=== PATIENT | female | born 1945 | race Caucasian/White ===

== ENCOUNTER 2019-09-29 11:09 | Emergency (ER) | payer OTHER ==
[~2019-09-29 11:09] MED LIST: AMIO200T44 PO; ASPI-1197 PO; ASPI-555 PO; CARV3.1262 PO; GABA-531 PO; IPRA3AMP24 IH; ISOS60TA4 PO; LEVO75TA10 PO; LISI10TA7 PO; METF-444 PO; METF500T3 PO; NITR.3 SL; PRAV40TA3 PO; TRAM50TA4 PO; TRAZ-185 PO
== END 2019-09-29 11:48 | disposition home or self-care (01) ==
LOC: EDH 11:09
DX: M17.12 Unilateral primary osteoarthritis, left knee (principal); I10 Essential (primary) hypertension; R78.5 Finding of other psychotropic drug in blood; E11.9 Type 2 diabetes mellitus without complications; E07.9 Disorder of thyroid, unspecified
CPT/HCPCS: 99281

== ENCOUNTER → 2020-01-07 | Outpatient (CLI) | payer OTHER ==
[~2020-01-07] MED LIST changes: -ASPI-555 PO; +ASPI-556 PO
== END | disposition home or self-care (01) ==
LOC: SHCH 10:55
PROVIDERS: ATTEND Internal Medicine Cardiovascular Disease
DX: I25.110 Atherosclerotic heart disease of native coronary artery with unstable angina pectoris (principal)
CPT/HCPCS: 93306; 93356

== ENCOUNTER → 2020-01-15 | Outpatient (CLI) | payer OTHER ==
[~2020-01-15] MED LIST changes: +REGADENOSON 0.4 MG/5 ML PF SYG IVP SCH
== END | disposition home or self-care (01) ==
LOC: RAH 08:53
PROVIDERS: ATTEND Internal Medicine Cardiovascular Disease
DX: I25.110 Atherosclerotic heart disease of native coronary artery with unstable angina pectoris (principal); R07.9 Chest pain, unspecified; R06.00 Dyspnea, unspecified
CPT/HCPCS: 78452; 93017; 96374; A9500 ×2; J2785

== ENCOUNTER → 2020-11-11 | Outpatient (CLI) | payer OTHER ==
[~2020-11-11] MED LIST changes: -ISOS60TA4 PO; +ISOS60TA77 PO; +LISI10TA24 PO; -LISI10TA7 PO; -REGADENOSON 0.4 MG/5 ML PF SYG IVP SCH
== END | disposition home or self-care (01) ==
LOC: SHCH 13:14
PROVIDERS: ATTEND Internal Medicine Cardiovascular Disease
DX: I65.22 Occlusion and stenosis of left carotid artery (principal); E78.5 Hyperlipidemia, unspecified; I48.91 Unspecified atrial fibrillation; E11.42 Type 2 diabetes mellitus with diabetic polyneuropathy; I11.9 Hypertensive heart disease without heart failure; Z68.27 Body mass index [BMI] 27.0-27.9, adult; I25.810 Atherosclerosis of coronary artery bypass graft(s) without angina pectoris; Z95.1 Presence of aortocoronary bypass graft
CPT/HCPCS: 93880

== ENCOUNTER 2021-04-06 09:58 | Observation (INO) | payer OTHER ==
[~2021-04-06] VITALS: Ht 154.9 cm; Wt 64.4 kg
[2021-04-06 10:52] LABS: BASOPHILS % (AUTO) 0.4 % (0.0-5.0); EOSINOPHILS % (AUTO) 2.8 % (0.0-8.0); HEMATOCRIT 36.4 % (36-48); LYMPHOCYTES % (AUTO) 18.9 % (21.0-51.0); MEAN CORPUSCULAR HEMOGLOBIN 27.8 pg (27.0-33.0); MEAN CORPUSCULAR VOLUME 84.5 fL (79-99); MONOCYTES % (AUTO) 8.4 % (3.0-13.0); PLATELET COUNT (AUTO) 212 K/uL (130-400); RED BLOOD CELL COUNT(AUTO) 4.31 MIL/uL (4.00-5.50); RED CELL DISTRIBUTION WIDTH 15.2 % (11.0-15.5); WHITE BLOOD COUNT (AUTO) 7.8 K/uL (4.8-10.8)
[2021-04-06] MEDS ORDERED: ONDANSETRON 4MG INJ IVP ONE (11:00)
[2021-04-06] MEDS ORDERED: LACTATED RINGERS 1000ML 1,000 ML IV ONE (11:00)
[2021-04-06 11:12] LABS: B-TYPE NATRIURETIC PEPTIDE 25 pg/mL (0-100)
[2021-04-06 11:13] LABS: CREATININE 1.6 mg/dL (0.5-1.5); POTASSIUM 5.7 mmol/L (3.5-5.1)
[2021-04-06 11:18] LABS: ALBUMIN 4.3 g/dL (3.5-5.0); BILIRUBIN,TOTAL 0.6 mg/dL (0.2-1.0); TOTAL PROTEIN, SERUM 7.5 g/dL (6.0-8.3)
[2021-04-06 12:42] LABS: APPEARANCE,URINE CLEAR (CLEAR); BILIRUBIN,URINE NEGATIVE (NEGATIVE); COLOR,URINE YELLOW (YELLOW); GLUCOSE, URINE (UA) NEGATIVE (NEGATIVE); KETONES,URINE 15 mg/dL (NEGATIVE); LEUKOCYTE ESTERASE ,URINE NEGATIVE (NEGATIVE); NITRATE,URINE NEGATIVE (NEGATIVE); OCCULT BLOOD,URINE NEGATIVE (NEGATIVE); PROTEIN,URINE NEGATIVE (NEGATIVE); UROBILINOGEN,URINE 0.2 mg/dL (0.2-1.0)
[2021-04-06 13:15] LABS: BACTERIA,URINE Rare /HPF (None Seen); RBC,URINE 0-1 /HPF (0-1); SQUAMOUS EPITHELIAL CELL,UR Rare /HPF (0-2); WBC,URINE 0-1 /HPF (0-1)
[2021-04-06] MEDS ORDERED: FAMOTIDINE 20MG VIAL IV ONE (13:49)
[2021-04-06 14:16] LABS: CREATININE 1.3 mg/dL (0.5-1.5); POTASSIUM 5.8 mmol/L (3.5-5.1)
[2021-04-06] MEDS ORDERED: PROMETHAZINE HCL 25 MG/ML 1ML AMPULE IM ONE (14:30)
[2021-04-06] MEDS ORDERED: ACETAMINOPHEN 325 MG TAB PO PRN (16:00)
[2021-04-06] MEDS ORDERED: ONDANSETRON 4MG INJ IVP PRN (16:00)
[2021-04-06] MEDS ORDERED: MORPHINE 2 MG SYG IVP PRN (16:00)
[2021-04-06] MEDS ORDERED: CLONIDINE HCL 0.1 MG TABLET PO PRN (16:00)
[2021-04-06] MEDS ORDERED: ACETAMINOPHEN 650 MG SUPPOSITORY RC PRN (16:00)
[2021-04-06] MEDS: CEFTRIAXONE 1G VIAL IVP SCH (16:43)
[2021-04-06] MEDS: DEXTROSE 5 % AND 0.9 % NACL 1,000 ML IV SCH (16:43)
[2021-04-06] MEDS: ALBUTEROL 0.083% 2.5 MG/3 ML INH IH SCH (18:00)
[2021-04-06 21:26] LABS: APPEARANCE,URINE Clear (CLEAR); BILIRUBIN,URINE Negative (NEGATIVE); COLOR,URINE Yellow (YELLOW); GLUCOSE, URINE (UA) 250 mg/dL (NEGATIVE); KETONES,URINE 15 mg/dL (NEGATIVE); LEUKOCYTE ESTERASE ,URINE Negative (NEGATIVE); NITRATE,URINE Negative (NEGATIVE); OCCULT BLOOD,URINE Negative (NEGATIVE); PH,URINE 5.5 (5.0-8.0); PROTEIN,URINE Negative (NEGATIVE); UROBILINOGEN,URINE 0.2 mg/dL (0.2-1.0)
[2021-04-06 21:35] LABS: BACTERIA,URINE Rare /HPF (None Seen); RBC,URINE 0-1 /HPF (0-1); SQUAMOUS EPITHELIAL CELL,UR Rare /HPF (0-2); WBC,URINE 0-1 /HPF (0-1)
[2021-04-06] MEDS ORDERED: VITA1CAP50 PO (22:11)
[2021-04-06] MEDS ORDERED: CHOL500045 PO (22:11)
[2021-04-06] MEDS ORDERED: OMEG100014 PO (22:11)
[2021-04-06] MEDS ORDERED: FLUT16H NS (22:11)
[2021-04-06] MEDS ORDERED: LEVO88CA4 PO (22:11)
[2021-04-06] MEDS ORDERED: MAGN250T2 PO (22:11)
[2021-04-06] MEDS ORDERED: RANO500T2 PO (22:11)
[2021-04-06] MEDS: METRONIDAZOLE 500MG/100ML BAG 100 ML IVPB SCH (22:28)
[2021-04-07 04:15] VITALS: BP 145/61
[2021-04-07] MEDS: METRONIDAZOLE 500MG/100ML BAG 100 ML IVPB SCH ×3 (05:55→22:59)
[2021-04-07] MEDS: ALBUTEROL 0.083% 2.5 MG/3 ML INH IH SCH ×2 (06:00→18:00)
[2021-04-07 06:18] LABS: BASOPHILS % (AUTO) 0.5 % (0.0-5.0); EOSINOPHILS % (AUTO) 4.3 % (0.0-8.0); HEMATOCRIT 35.8 % (36-48); LYMPHOCYTES % (AUTO) 23.4 % (21.0-51.0); MEAN CORPUSCULAR HEMOGLOBIN 27.9 pg (27.0-33.0); MEAN CORPUSCULAR HGB CONC 33.2 g/dL (32.0-36.0); MONOCYTES % (AUTO) 9.8 % (3.0-13.0); NEUTROPHILS % (AUTO) 61.7 % (40.0-77.0); PLATELET COUNT (AUTO) 211 K/uL (130-400); RED BLOOD CELL COUNT(AUTO) 4.26 MIL/uL (4.00-5.50); RED CELL DISTRIBUTION WIDTH 15.7 % (11.0-15.5); WHITE BLOOD COUNT (AUTO) 6.5 K/uL (4.8-10.8)
[2021-04-07 06:29] LABS: HEMOGLOBIN A1C 5.9 % (4.0-6.0)
[2021-04-07 06:49] LABS: MAGNESIUM 1.4 mg/dL (1.80-2.40); PHOSPHORUS 2.9 mg/dL (2.5-4.9); POTASSIUM 4.8 mmol/L (3.5-5.1); THYROID STIMULATING HORMONE 0.83 uIU/mL (0.36-3.74)
[2021-04-07] MEDS: DEXTROSE 5 % AND 0.9 % NACL 1,000 ML IV SCH ×2 (08:00→12:00)
[2021-04-07 08:39] VITALS: BP 129/57
[2021-04-07] MEDS: ENOXAPARIN SODIUM 40 MG/0.4 ML SYRINGE SQ SCH (08:58)
[2021-04-07] MEDS: PANTOPRAZOLE 40 MG/VIAL IVP SCH (08:58)
[2021-04-07 11:46] VITALS: BP 146/47
[2021-04-07] MEDS ORDERED: METF-444 PO (14:17)
[2021-04-07] MEDS ORDERED: PRAV40TA3 PO (14:17)
[2021-04-07] MEDS ORDERED: CARV6.25 PO (14:17)
[2021-04-07] MEDS ORDERED: LISI10TA24 PO (14:17)
[2021-04-07] MEDS ORDERED: NITR0.4T50 SL (14:17)
[2021-04-07] MEDS ORDERED: ISOS60TA77 PO (14:17)
[2021-04-07] MEDS ORDERED: AEC81 PO (14:17)
[2021-04-07] MEDS ORDERED: GABA-529 PO (14:17)
[2021-04-07] MEDS ORDERED: FLUT16H NASAL (14:39)
[2021-04-07] MEDS ORDERED: NITROGLYCERIN 0.4 MG SL TAB SL PRN (15:00)
[2021-04-07] MEDS: CEFTRIAXONE 1G VIAL IVP SCH (15:05)
[2021-04-07 16:15] VITALS: BP 161/62
[2021-04-07 19:15] VITALS: BP 134/50
[2021-04-07] MEDS ORDERED: NON-FORMULARY MEDICATION 1 EACH (Pravastatin Sodium 40 MG) PO SCH (21:00)
[2021-04-07] MEDS ORDERED: MAGNESIUM 500MG PO SCH (21:00)
[2021-04-07] MEDS ORDERED: ISOSORBIDE MONO 60MG SR TAB PO SCH (21:00)
[2021-04-07] MEDS ORDERED: PRAVASTATIN 40MG PO SCH (21:00)
[2021-04-07] MEDS ORDERED: MAGNESIUM 500 MG PO SCH (21:00)
[2021-04-07] MEDS: CARVEDILOL 6.25 MG TABLET PO SCH (21:24)
[2021-04-07] MEDS: METFORMIN HCL 500 MG TABLET PO SCH (21:25)
[2021-04-07] MEDS: RANOLAZINE 500 MG TAB.SR.12H PO SCH (21:25)
[2021-04-07] MEDS: GABAPENTIN 100 MG CAPSULE PO SCH (21:26)
[2021-04-07 23:27] VITALS: BP 138/53
[2021-04-08] VITALS (17 sets, daily range): BP systolic 100–144; BP diastolic 49–80
[2021-04-08] MEDS: ALBUTEROL 0.083% 2.5 MG/3 ML INH IH SCH ×2 (06:00→11:09)
[2021-04-08] MEDS: METRONIDAZOLE 500MG/100ML BAG 100 ML IVPB SCH ×2 (06:14→15:08)
[2021-04-08] MEDS: DEXTROSE 5 % AND 0.9 % NACL 1,000 ML IV SCH ×2 (06:15→08:00)
[2021-04-08] MEDS ORDERED: LEVOTHYROXINE 88 MCG TABLET PO SCH (06:30)
[2021-04-08] MEDS ORDERED: NON-FORMULARY MEDICATION 1 EACH (Cholecalciferol (Vitamin D3) (Vitamin D3) 125 MCG) PO SCH (09:00)
[2021-04-08] MEDS ORDERED: VITAMIN B COMPLEX 1 CAPSULE PO SCH (09:00)
[2021-04-08] MEDS ORDERED: B COMPLEX WITH VITAMIN C PO SCH (09:00)
[2021-04-08] MEDS ORDERED: ASPIRIN 81 MG EC TAB PO SCH (09:00)
[2021-04-08] MEDS: ENOXAPARIN SODIUM 40 MG/0.4 ML SYRINGE SQ SCH (09:00)
[2021-04-08] MEDS ORDERED: VITAMIN D 125MCG PO SCH (09:00)
[2021-04-08] MEDS ORDERED: OMEGA PO SCH (09:00)
[2021-04-08] MEDS: METFORMIN HCL 500 MG TABLET PO SCH (09:00)
[2021-04-08] MEDS ORDERED: ASCORBIC ACID 500 MG TAB PO SCH (09:00)
[2021-04-08] MEDS: RANOLAZINE 500 MG TAB.SR.12H PO SCH (09:00)
[2021-04-08] MEDS: CARVEDILOL 6.25 MG TABLET PO SCH (09:00)
[2021-04-08] MEDS: PANTOPRAZOLE 40 MG/VIAL IVP SCH (09:00)
[2021-04-08] MEDS ORDERED: FATTY ACIDS PO SCH (09:00)
[2021-04-08] MEDS ORDERED: FISH OIL 1000 MG/CAP PO SCH (09:00)
[2021-04-08] MEDS: GABAPENTIN 100 MG CAPSULE PO SCH ×2 (09:00→15:09)
[2021-04-08] MEDS ORDERED: NON-FORMULARY MEDICATION 1 EACH (Levothyroxine Sodium (Levothyroxine) 88 MCG) PO SCH (09:00)
[2021-04-08] MEDS ORDERED: PROPOFOL 10 MG/ML 20ML VIAL IV ONE (12:00)
[2021-04-08] MEDS ORDERED: LIDOCAINE HCL 1% 20 ML VIAL ONE (12:01)
[2021-04-08] MEDS ORDERED: EPHEDRINE SULFATE 50 MG/ML AMPULE ONE (12:07)
[2021-04-08] MEDS: CEFTRIAXONE 1G VIAL IVP SCH (15:08)
[2021-04-08] MEDS ORDERED: PANT40TA54 PO (17:22)
[2021-04-08] MEDS ORDERED: METO5TAB2 PO (17:25)
[2021-04-08] MEDS ORDERED: METR500T PO (17:26)
== END 2021-04-08 18:58 | disposition home or self-care (01) ==
LOC: EDH 09:58 → EDHIP 15:35 → 3BH 04-07 04:11
PROVIDERS: ADMIT Internal Medicine Critical Care Medicine; ATTEND Internal Medicine Critical Care Medicine
DX: K29.00 Acute gastritis without bleeding (principal); Z20.822 Contact with and (suspected) exposure to COVID-19; K80.20 Calculus of gallbladder without cholecystitis without obstruction; K82.1 Hydrops of gallbladder; E87.5 Hyperkalemia; E86.0 Dehydration; I10 Essential (primary) hypertension; E11.40 Type 2 diabetes mellitus with diabetic neuropathy, unspecified; E78.5 Hyperlipidemia, unspecified; E03.9 Hypothyroidism, unspecified; E78.00 Pure hypercholesterolemia, unspecified; I25.10 Atherosclerotic heart disease of native coronary artery without angina pectoris; R79.89 Other specified abnormal findings of blood chemistry; Z79.899 Other long term (current) drug therapy; Z79.82 Long term (current) use of aspirin; Z79.84 Long term (current) use of oral hypoglycemic drugs; Z79.890 Hormone replacement therapy; Z95.1 Presence of aortocoronary bypass graft
CPT/HCPCS: 36415 ×3; 43239; 71045; 74176; 76705; 80048; 80053; 81001; 82533 ×2; 82550 ×4; 82948 ×6; 83036; 83605; 83735; 83874 ×3; 83880; 84100; 84145; 84443 ×2; 84484 ×4; 85025 ×2; 85378; 87077; 87088; 87186; 87635; 87804 ×2; 88305; 88342; 93005; 94664; 96361; 96365; 96366 ×3; 96372 ×2; 96375; 96376 ×2; 99285; A4215; A4222; A4606; A4620; A4657; C9113; C9803; G0378 ×48; J0696 ×3; J1650; J2405; J2704; J3490 ×8; J7030; J7042 ×4

== ENCOUNTER → 2021-06-07 | Outpatient (CLI) | payer OTHER ==
[~2021-06-07] VITALS: Ht 157.5 cm; Wt 64.9 kg
[~2021-06-07] MED LIST changes: +AEC81 PO; -AMIO200T44 PO; -ASPI-1197 PO; -ASPI-556 PO; -CARV3.1262 PO; +CARV6.25 PO; +CHOL500045 PO; +FLUT16H NASAL; +GABA-529 PO; -GABA-531 PO; -IPRA3AMP24 IH; -LEVO75TA10 PO; +LEVO88CA4 PO; -LISI10TA24 PO; +MAGN250T2 PO; -METF500T3 PO; +METO5TAB2 PO; +METR500T PO; -NITR.3 SL; +NITR0.4T50 SL; +OMEG100014 PO; +PANT40TA54 PO; +RANO500T2 PO; +REGADENOSON 0.4 MG/5 ML PF SYG IVP SCH; -TRAM50TA4 PO; -TRAZ-185 PO; +VITA1CAP50 PO
== END | disposition home or self-care (01) ==
LOC: SHCH 08:11
PROVIDERS: ATTEND Internal Medicine Cardiovascular Disease
DX: I25.119 Atherosclerotic heart disease of native coronary artery with unspecified angina pectoris (principal); R51.9 Headache, unspecified
CPT/HCPCS: 78452; 93017; 96374; A9500 ×2; J2785

== ENCOUNTER → 2022-03-22 | Outpatient (CLI) | payer OTHER ==
[~2022-03-22] MED LIST changes: +CALC-1125 PO; +CARV12.511 PO; +IRON1CAP32 PO; +LISI40TA9 PO; -MAGN250T2 PO; +MAGN250T35 PO; -REGADENOSON 0.4 MG/5 ML PF SYG IVP SCH; +ROSU40TA21 PO; +VITAMIN B12 IM; +VITAMIN B12 PO; +VITAMIN D3 PO
== END | disposition home or self-care (01) ==
LOC: RAH 14:39
PROVIDERS: ATTEND Internal Medicine Critical Care Medicine
DX: K80.20 Calculus of gallbladder without cholecystitis without obstruction (principal); R93.89 Abnormal findings on diagnostic imaging of other specified body structures; J98.4 Other disorders of lung
CPT/HCPCS: 71250

== ENCOUNTER 2022-03-23 05:55 | Day surgery (SDC) | payer OTHER ==
[2022-03-21 15:25] LABS: BASOPHILS % (AUTO) 0.4 % (0.0-5.0); EOSINOPHILS % (AUTO) 7.7 % (0.0-8.0); HEMATOCRIT 35.3 % (36-48); LYMPHOCYTES % (AUTO) 26.4 % (21.0-51.0); MEAN CORPUSCULAR HEMOGLOBIN 29.2 pg (27.0-33.0); MEAN CORPUSCULAR VOLUME 91.2 fL (79-99); MONOCYTES % (AUTO) 8.4 % (3.0-13.0); NEUTROPHILS % (AUTO) 56.7 % (40.0-77.0); PLATELET COUNT (AUTO) 174 K/uL (130-400); RED BLOOD CELL COUNT(AUTO) 3.87 MIL/uL (4.00-5.50); RED CELL DISTRIBUTION WIDTH 13.6 % (11.0-15.5); WHITE BLOOD COUNT (AUTO) 6.8 K/uL (4.8-10.8)
[2022-03-21 15:27] LABS: APPEARANCE,URINE CLEAR (CLEAR); BILIRUBIN,URINE NEGATIVE (NEGATIVE); COLOR,URINE YELLOW (YELLOW); GLUCOSE, URINE (UA) NEGATIVE (NEGATIVE); KETONES,URINE NEGATIVE (NEGATIVE); LEUKOCYTE ESTERASE ,URINE 75 Leu/uL (NEGATIVE); NITRATE,URINE 2+ (NEGATIVE); OCCULT BLOOD,URINE NEGATIVE (NEGATIVE); PROTEIN,URINE NEGATIVE (NEGATIVE); UROBILINOGEN,URINE 0.2 mg/dL (0.2-1.0)
[2022-03-21 15:36] LABS: PROTHROMBIN TIME 10.9 SEC (9.6-11.6)
[2022-03-21 15:38] LABS: PARTIAL THROMBOPLASTIN TIME 29.4 SEC (26.3-35.5)
[2022-03-21 15:38] LABS: BACTERIA,URINE MOD /HPF (None Seen); MUCUS,URINE RARE LPF (None Seen); RBC,URINE 0-1 /HPF (0-1); SQUAMOUS EPITHELIAL CELL,UR FEW /HPF (0-2)
[2022-03-21 15:50] LABS: B-TYPE NATRIURETIC PEPTIDE 118 pg/mL (0-100); POTASSIUM 4.3 mmol/L (3.5-5.1)
[2022-03-22 09:57] VITALS: BP 153/62
[2022-03-23] VITALS (11 sets, daily range): BP systolic 120–159; BP diastolic 45–60
[~2022-03-23] VITALS: Ht 152.4 cm; Wt 70.3 kg
[~2022-03-23 05:55] MED LIST changes: -CARV6.25 PO; -CHOL500045 PO; -FLUT16H NASAL; -MAGN250T35 PO; -METO5TAB2 PO; -METR500T PO; -PANT40TA54 PO; -PRAV40TA3 PO; -VITA1CAP50 PO
[2022-03-23] MEDS ORDERED: CEFTRIAXONE 1G VIAL IVP SCH (06:00)
[2022-03-23] MEDS ORDERED: 0.9%NACL 1000ML 1,000 ML IV ONE (06:21)
[2022-03-23] MEDS ORDERED: LIDOCAINE HCL 1% 10 ML VIAL ONE ×2 (12:06→12:09)
[2022-03-23] MEDS ORDERED: IOHEXOL 350 MG/ML 100ML INFUS..BTL IV ONE (12:06)
[2022-03-23] MEDS ORDERED: MIDAZOLAM HCL 5 MG/ML 2ML VIAL IV ONE (12:07)
[2022-03-23] MEDS ORDERED: FENTANYL CITRATE PF 50 MCG/1 ML 2ML VIAL ONE (12:07)
[2022-03-23] MEDS ORDERED: GLUCAGON 1MG KIT 1 MG ML IM PRN (13:30)
[2022-03-23] MEDS ORDERED: 0.9%NACL 1000ML 1,000 ML IV SCH (13:30)
[2022-03-23] MEDS ORDERED: DEXTROSE 50%-WATER 50 ML DISP.SYRIN IV PRN (13:30)
[2022-03-23] MEDS ORDERED: INSULIN HUMULIN R 100 UNIT/ML 3ML SQ SCH (16:30)
== END 2022-03-23 18:00 | disposition home or self-care (01) ==
LOC: DAH 05:55
PROVIDERS: ATTEND Internal Medicine Cardiovascular Disease
DX: I25.110 Atherosclerotic heart disease of native coronary artery with unstable angina pectoris (principal); I11.0 Hypertensive heart disease with heart failure; I50.42 Chronic combined systolic (congestive) and diastolic (congestive) heart failure; I08.2 Rheumatic disorders of both aortic and tricuspid valves; E78.5 Hyperlipidemia, unspecified; E11.42 Type 2 diabetes mellitus with diabetic polyneuropathy; I65.22 Occlusion and stenosis of left carotid artery; E03.9 Hypothyroidism, unspecified; I87.2 Venous insufficiency (chronic) (peripheral); Z95.5 Presence of coronary angioplasty implant and graft; Z86.16 Personal history of COVID-19; Z79.84 Long term (current) use of oral hypoglycemic drugs; Z79.890 Hormone replacement therapy; Z82.49 Family history of ischemic heart disease and other diseases of the circulatory system; Z83.3 Family history of diabetes mellitus; Z95.1 Presence of aortocoronary bypass graft; Z79.82 Long term (current) use of aspirin; Z79.01 Long term (current) use of anticoagulants; Z79.899 Other long term (current) drug therapy
CPT/HCPCS: 80048; 83880; 85025; 85610; 85730; 87088; 81001; 36415; 93005; 93459; 36215; 87077; 87186; 82948; 93306; 75710; C1894 ×2; C1769; J3010; J7030; J0696; J3490 ×2; J1644; J2250; Q9967; A4222; A4221; A4663; A4216; A4606; Q9965; A4223 ×3; 93325; 96360; 96361; 99156; 99157

== ENCOUNTER → 2023-02-24 | Outpatient (CLI) | payer OTHER, MEDICARE | END | disposition home or self-care (01) | LOC: LAB 13:38 | PROVIDERS: ATTEND Internal Medicine Cardiovascular Disease | DX: I25.110 Atherosclerotic heart disease of native coronary artery with unstable angina pectoris (principal) | CPT/HCPCS: 36415; 83880; 84484 ==

== ENCOUNTER → 2024-01-11 | Outpatient (CLI) | payer OTHER ==
[~2024-01-11] MED LIST changes: -ROSU40TA21 PO; +ROSU40TA70 PO
== END | disposition home or self-care (01) ==
LOC: SHCH 11:06
PROVIDERS: ATTEND Internal Medicine Cardiovascular Disease
DX: I65.22 Occlusion and stenosis of left carotid artery (principal)
CPT/HCPCS: 93880

== ENCOUNTER → 2024-08-26 | Outpatient (CLI) | payer OTHER, MEDICARE ==
[~2024-08-26] MED LIST changes: -ROSU40TA70 PO; +ROSU40TA88 PO
== END | disposition home or self-care (01) ==
LOC: SHCH 15:34
PROVIDERS: ATTEND Internal Medicine Cardiovascular Disease
DX: I20.9 Angina pectoris, unspecified (principal)
CPT/HCPCS: 93306